=== PATIENT | female | born 2000 | race Caucasian/White ===

== ENCOUNTER 2019-08-17 22:42 | Emergency (ER) | payer OTHER ==
[2019-08-17 22:58] VITALS: BP 122/80; PULSE 81; RESP 18; TEMP 99.3
[2019-08-17] MEDS ORDERED: ACETAMINOPHEN TAB 500 MG TAB PO STA (23:17)
[2019-08-17] MEDS ORDERED: KETOROLAC 30 MG/ML 1 ML VIAL IM STA (23:17)
--- NOTE | 2019-08-18 00:05 | XR ---
EXAMINATION TYPE: XR hand complete LT DATE OF EXAM: 08/17/2019 COMPARISON: NONE HISTORY: Thumb foreign body TECHNIQUE: 3 views FINDINGS: I see no fracture nor dislocation. There is no evidence of radiopaque foreign body. Joint s paces appear normal. IMPRESSION: No sign of a foreign body.
[2019-08-18] MEDS ORDERED: CEPHALEXIN 500MG STARTER PACK 4 CAP BTL PO STA (00:22)
[2019-08-18] MEDS ORDERED: ACET/COD 300 MG/30 MG STARTER PACK 6 TAB BTL PO STA (00:22)
--- NOTE | 2019-08-18 00:22 | ED ---
Extremity Problem HPI - General Chief complaint: Extremity Problem,Nontraumatic Stated complaint: Lt arm pain Time Seen by Provider: 08/17/19 23:09 Source: patient Mode of arrival: ambulatory Limitations: no limitations - History of Present Illness Initial comments: 19-year-old female patient presents to the emergency department today for evaluation of left hand pain radiating up her arm. Patient states just prior to arrival she was fishing, states she went to take the face when one of its spines poked her in the hand. Patient states she had immediate onset of pain is radiating up her arm. States the area appears to be swollen. She states it was a Goby, which is a type of fresh water fish. She denies any fever or chills. Denies any numbness or tingling to the hand. Denies any difficulty breathing, lip, tongue, or throat swelling. Patient denies any headache, neck pain, back pain, chest pain, shortness of breath, dizziness, weakness, abdominal pain, nausea, vomiting, or difficulties with bowel movements or urination. - Related Data Previous Rx's Medication Instructions Recorded Cephalexin [Keflex] 500 mg PO Q6H #28 cap 08/18/19 Ibuprofen [Motrin] 600 mg PO Q8HR PRN #30 tab 08/18/19 Allergies Allergy/AdvReac Type Severity Reaction Status Date / Time No Known Allergies Allergy Verified 08/17/19 22:58 Review of Systems ROS Statement: Those systems with pertinent positive or pertinent negative responses have been documented in the HPI. ROS Other: All systems not noted in ROS Statement are negative. Past Medical History Past Medical History: No Reported History History of Any Multi-Drug Resistant Organisms: None Reported Past Surgical History: No Surgical Hx Reported Past Psychological History: No Psychological Hx Reported Smoking Status: Current every day smoker Past Alcohol Use History: None Reported Past Drug Use History: None Reported General Exam Limitations: no limitations General appearance: alert, in no apparent distress, other (This is a well- developed, well-nourished adult female patient in no acute distress. Vital signs on presentation are temperature 99.3F, pulse 81, respirations 18, blood pressure 122/80, pulse ox 99% on room air.) Respiratory exam: Present: normal lung sounds bilaterally. Absent: respiratory distress, wheezes, rales, rhonchi, stridor Cardiovascular Exam: Present: regular rate, normal rhythm, normal heart sounds. Absent: systolic murmur, diastolic murmur, rubs, gallop, clicks Extremities exam: Present: full ROM, normal capillary refill, other (There is puncture noted to the left hand over the thenar eminence. Mild erythema over this area as well. skin is otherwise pink, warm, and dry. Cap refills less than 3 seconds. Radial pulses are 2+ and equal bilaterally.). Absent: normal inspection, tenderness, pedal edema, joint swelling, calf tenderness Neurological exam: Present: alert, oriented X3, CN II-XII intact Psychiatric exam: Present: normal affect, normal mood Skin exam: Present: warm, dry, intact, normal color. Absent: rash Course Vital Signs 08/17/19 22:56 Temperature 99.3 F Pulse Rate 81 Respiratory 18 Rate Blood Pressure 122/80 O2 Sat by Pulse 99 Oximetry Medical Decision Making - Medical Decision Making 19-year-old female patient presented to the emergency department today for evaluation of left hand pain with radiation up the arm after being stuck by a spine on a fish while fishing. Physical examination shows soft tissue swelling, erythema to the left hand over the thenar eminence. Neurovascular status is intact. X-ray of the hand showed no evidence for foreign body. We will start prophylactic antibiotics. Should be discharged to follow-up with her primary ca re physician for recheck in 1-2 days. Return parameters were discussed in detail. She verbalizes understanding and agrees with this plan. - Radiology Data Radiology results: report reviewed, image reviewed 3 views of the left hand are obtained. Report is reviewed in its entirety. Impression by Dr. Steele shows no sign of a foreign body. Disposition Clinical Impression: Puncture wound, Arm pain Disposition: HOME SELF-CARE Condition: Good Instructions (If sedation given, give patient instructions): Puncture Wound (ED) Additional Instructions: Apply ice to the painful area. Complete antibiotic prescription and full. Follow-up through primary care physician for recheck in 1-2 days. Return to the emergency department immediately for any new, worsening, or concerning symptoms. Prescriptions: Cephalexin [Keflex] 500 mg PO Q6H #28 cap Ibuprofen [Motrin] 600 mg PO Q8HR PRN #30 tab PRN Reason: Pain Is patient prescribed a controlled substance at d/c from ED?: No Referrals: Alberto Oliveira MD [Primary Care Provider] - 1-2 days Time of Disposition: 00:21
== END 2019-08-18 00:42 | disposition home or self-care (01) ==
LOC: EC 22:42
DX: S41.132A Puncture wound without foreign body of left upper arm, initial encounter (principal); F17.200 Nicotine dependence, unspecified, uncomplicated; W45.8XXA Other foreign body or object entering through skin, initial encounter
CPT/HCPCS: 73130; 99283; 96372; J1885